=== PATIENT | female | born 1945 | race Caucasian/White ===

== ENCOUNTER → 2016-09-30 | Outpatient (CLI) | payer OTHER, BC ==
--- NOTE | 2016-09-30 13:47 | MAMMOGRAPHY REPORT ---
BILATERAL DIGITAL SCREENING MAMMOGRAM WITH CAD: 09/30/2016 CLINICAL HISTORY: Routine screening. Patient has no complaints. TECHNIQUE: Current study was also evaluated with a Computer Aided Detection (CAD) system. Bilatera l CC and MLO views were obtained. COMPARISON: Comparison is made to exams dated: 09/11/2015 mammogram - [facility], 04/30/2013 mammogram, 05/01/2014 mammogram, 04/27/2012 mammogram, 04/26/2011 mammogram, and 04/23/2010 mammo gram. BREAST COMPOSITION: The tissue of both breasts is heterogeneously dense, which may obscure small ma sses. FINDINGS: No suspicious masses, calcifications, or areas of architectural distortion are noted in e ither breast. There has been no significant interval change compared to prior exams. There are stab le postsurgical changes in the left breast. Bilateral benign-appearing calcifications are stable, p redominantly vascular calcifications. IMPRESSION: ACR BI-RADS CATEGORY 2: BENIGN There is no mammographic evidence of malignancy. A 1 year screening mammogram is recommended. The p atient will receive written notification of the results. Approximately 10% of breast cancers are not detected with mammography. A negative mammographic repor t should not delay biopsy if a clinically suggestive mass is present. Jackelyn Rodriguez M.D. ah/:09/30/2016 12:29:47 Refractive Surgeon: Dasha PATEL(R)(M), [facility] letter sent: Normal 1/2 BI-RADS Code: ACR BI-RADS Category 2: Benign
== END | disposition home or self-care (01) ==
LOC: C.MAMM 10:23
PROVIDERS: ATTEND Internal Medicine
DX: Z12.31 Encounter for screening mammogram for malignant neoplasm of breast (principal); Z78.0 Asymptomatic menopausal state; M85.80 Other specified disorders of bone density and structure, unspecified site

== ENCOUNTER → 2017-02-03 | Outpatient (CLI) | payer OTHER, BC ==
[2017-02-03 08:59] LABS: ALT/SGPT 35 U/L (12-78); BLOOD UREA NITROGEN 15 mg/dl (7-18); BUN/CREATININE RATIO 18.2 (10-20); CARBON DIOXIDE 29 mmol/L (21-32); CHLORIDE 106 mmol/L (98-107); CHOLESTEROL 205 mg/dl (0-200); CREATININE 0.83 mg/dl (0.60-1.20); GLUCOSE 89 mg/dl (70-99); POTASSIUM 4.3 mmol/L (3.5-5.1); SODIUM 141 mmol/L (136-145)
[2017-02-03 09:10] LABS: ALB/GLOB RATIO 1.1 (0.9-2); ALKALINE PHOSPHATASE 83 U/L (45-117); AST/SGOT 32 U/L (15-37); CHOLESTEROL/HDL RATIO 3.3; HDL CHOLESTEROL 63 mg/dl; LDL CHOLESTEROL CALCULATED 112 mg/dl; TRIGLYCERIDES 152 mg/dl (0-150); VERY LOW DENSITY LIPOPROT CALC 30 mg/dl
[2017-02-03 09:17] LABS: CALCIUM 8.9 mg/dl (8.5-10.1)
== END | disposition home or self-care (01) ==
LOC: C.LABFOXMH 08:35
PROVIDERS: ATTEND Internal Medicine
DX: E78.5 Hyperlipidemia, unspecified (principal)

== ENCOUNTER → 2017-10-03 | Outpatient (CLI) | payer OTHER, BC ==
--- NOTE | 2017-10-03 15:09 | MAMMOGRAPHY REPORT ---
BILATERAL DIGITAL SCREENING MAMMOGRAM TOMOSYNTHESIS WITH CAD: 10/03/2017 CLINICAL HISTORY: Routine screening. Patient has no complaints. TECHNIQUE: Breast tomosynthesis in addition to standard 2D mammography was performed. Current study was also evaluated with a Computer Aided Detection (CAD) system. COMPARISON: Comparison is made to exams dated: 09/30/2016 mammogram, 09/11/2015 mammogram - [facility], 04/30/2013 mammogram, 05/01/2014 mammogram, 04/27/2012 mammogram, and 04/26/2011 mammogra m. BREAST COMPOSITION: The tissue of both breasts is heterogeneously dense, which may obscure small mas ses. FINDINGS: There is expected architectural distortion in an area of prior surgery in middle to posteri or slightly inferior left breast on the MLO view. Mild vascular calcification bilaterally and stable benign-appearing loosely grouped punctate microcalcifications in the lateral right breast. No new s uspicious mass, architectural distortion or cluster of microcalcifications is seen. IMPRESSION: ACR BI-RADS CATEGORY 1: NEGATIVE There is no mammographic evidence of malignancy. A 1 year screening mammogram is recommended. The pa tient will receive written notification of the results. Approximately 10% of breast cancers are not detected with mammography. A negative mammographic report should not delay biopsy if a clinically suggestive mass is present. Philly Funez M.D. ay/:10/03/2017 12:23:00 Materials Planner/Production Planner: Dasha MARIEE)(Maya), [facility] letter sent: Normal 1/2 BI-RADS Code: ACR BI-RADS Category 1: Negative
== END | disposition home or self-care (01) ==
LOC: C.MAMM 10:51
PROVIDERS: ATTEND Internal Medicine
DX: Z12.31 Encounter for screening mammogram for malignant neoplasm of breast (principal)

== ENCOUNTER → 2018-01-30 | Outpatient (CLI) | payer OTHER, BC ==
[2018-01-30 08:29] LABS: ALBUMIN 3.6 gm/dl (3.4-5.0); ALT/SGPT 30 U/L (12-78); AST/SGOT 28 U/L (15-37); BLOOD UREA NITROGEN 12 mg/dl (7-18); CALCIUM 8.6 mg/dl (8.5-10.1); CARBON DIOXIDE 29 mmol/L (21-32); CHOLESTEROL 166 mg/dl (0-200); CREATININE 0.85 mg/dl (0.60-1.20); GLUCOSE 89 mg/dl (70-99); POTASSIUM 4.2 mmol/L (3.5-5.1); SODIUM 135 mmol/L (136-145)
[2018-01-30 08:32] LABS: ALKALINE PHOSPHATASE 71 U/L (45-117); LDL CHOLESTEROL CALCULATED 88 mg/dl; TOTAL PROTEIN 7.1 gm/dl (6.4-8.2)
== END | disposition home or self-care (01) ==
LOC: C.LABFOXMH 07:47
PROVIDERS: ATTEND Nurse Practitioner Family
DX: E78.00 Pure hypercholesterolemia, unspecified (principal)

== ENCOUNTER 2021-06-10 07:53 | Observation (INO) ==
--- NOTE | 2021-06-02 12:56 | PAT Medication Instructions ---
Medication Instructions Date of Service June 02, 2021 Home Medications fluoxetine 20 mg capsule 20 mg PO QPM valsartan 160 mg tablet 160 mg PO QPM amlodipine 2.5 mg tablet 2.5 mg PO QAM omega-3 fatty acids 1,000 mg capsule (Fish Oil Concentrate) 1,000 mg PO BID vitamin B complex (B Complex-Vitamin B12) 1 tab PO QAM cholecalciferol (vitamin D3) 50 mcg (2,000 unit) capsule (Vitamin D3) 50 mcg PO QAM latanoprost 0.005 % eye drops 1 drp OPHTHALMIC (EYE) PM STOP taking 2 weeks before surgery omega-3 fatty acids 1,000 mg capsule (Fish Oil Concentrate) 1,000 mg PO BID DO NOT take the morning of surgery vitamin B complex (B Complex-Vitamin B12) 1 tab PO QAM cholecalciferol (vitamin D3) 50 mcg (2,000 unit) capsule (Vitamin D3) 50 mcg PO QAM Take morning of surgery With a small sip of water, OTHERWISE NOTHING TO EAT OR DRINK AFTER MIDNIGHT: amlodipine 2.5 mg tablet 2.5 mg PO QAM Take evening before surgery fluoxetine 20 mg capsule 20 mg PO QPM valsartan 160 mg tablet 160 mg PO QPM latanoprost 0.005 % eye drops 1 drp OPHTHALMIC (EYE) PM Other Notes If you have any questions please call us at [phone] or [phone] or [phone] or [phone]
--- NOTE | 2021-06-03 08:35 | Anesthesiology Consultation ---
Date of Service June 03, 2021 Assessment & Plan (1) Encounter for pre-operative examination: Chart Review Chart Review: Acceptable Risk for Surgery (pending 06/05 ECHO and preop Covid testing results ) and Patient seen in Pre Admission Testing Pt with chronic ECHO- III/ systolic murmur with no recent ECHOs. Did discuss with Dr. Huber- recommended ECHO prior to surgery- patient scheduled for ECHO 06/05/21 (pt aware) Per PAT appt on 06/03/21, patient denies any recent travel or large group activities. No known Covid positive contacts or Covid related symptoms. No known Covid infection in the past 90 days. Pt is vaccinated Covid. Preop Covid testing scheduled 06/08/21 = will await results. Educated on importance of self quarantining, social distancing and wearing mask in public for the patient one week prior to surgery and after Covid testing done History Surgery Operation Date: 06/10/21 11:40 Proposed Procedures p Bilateral Breast Mastectomy with Bilateral [place] Lymph Node Biopsy (NM Scan and Injection @930) - Fan Madrid DO, FACS Height/Weight Height: 5 ft 8 in Weight: 66 kg Allergies Allergy/AdvReac Type Severity Reaction Status Date / Time Sulfa (Sulfonamide Allergy fever, Verified 05/29/21 12:19 Antibiotics) nausea Medications Home Medications Medication Instructions Recorded Confirmed Last Taken fluoxetine 20 mg capsule 20 mg PO QPM 10/14/19 05/29/21 Unknown valsartan 160 mg tablet 160 mg PO QPM 10/14/19 05/29/21 Unknown amlodipine 2.5 mg tablet 2.5 mg PO QAM 10/22/19 05/29/21 Unknown omega-3 fatty acids 1,000 mg 1,000 mg PO BID 10/22/19 05/29/21 Unknown capsule (Fish Oil Concentrate) vitamin B complex (B 1 tab PO QAM 10/22/19 05/29/21 Unknown Complex-Vitamin B12) cholecalciferol (vitamin D3) 50 50 mcg PO QAM 05/29/21 05/29/21 Unknown mcg (2,000 unit) capsule (Vitamin D3) latanoprost 0.005 % eye drops 1 drp OPHTHALMIC (EYE) PM 05/29/21 05/29/21 Unknown Past Medical History Medical History (Updated 06/03/21 @ 16:19 by Modesta Baird PA-C) Bradycardia Per pt, normal for pt's HR to run 40-50 bpm; Pcp aware- monitoring- pt asymptomatic Breast cancer BL - dx 05/12/21 Cardiac murmur Since childhood No screen vent binder; no previous ECHO Depression Glaucoma History of skin cancer removed Hypertension Osteopenia Postoperative nausea Raynauds disease Exercise / Class Metabolic Activity II 4-5 Yardwork/Stairs/Walk up hill (one flight of stairs - no chest pain or SOB ) Past Family History Family History Aunt Breast cancer Colorectal cancer Maternal Uncle Colorectal cancer Maternal Other No family history of adverse response to anesthesia Denies family history of Ovarian cancer Prostate cancer Past Surgical History Surgical History H/O wisdom tooth extraction History of cataract surgery BL History of colonoscopy History of dilation and curettage History of left breast biopsy History of lumpectomy of left breast benign History of right breast biopsy Past Anesthesia History No Hx of Anesthesia Complications (with exception to PONV ) and No Family Hx of Anesthesia Complications History of PONV History of PONV and Hx of Motion Sickness Social History Smoking Status: Never smoker Do You Dip or Chew Tobacco: No Hx Alcohol Use: Yes Alcohol type: wine alcohol intake frequency: a few times a month Hx Substance Use: No substance use type: does not use Review of Systems Patient denies chest pain, shortness of breath, dyspnea on exertion, reflux, cough, wheezing, palpitations. No hx of seizures, stroke, [place], apnea/snoring. No hx of blood clots or blood transfusions Physical Exam Vital Signs VITALS BP 139/56 P 56 TEMP 97.5 SP02 99% RESP 16 Constitutional no acute distress ENMT Mouth: no TMJ clicking Thyromental Distance: > or= 3.5 Finger Breadths (4.0) Mallampati Class: III Permanent implant to right bottom side teeth Neck neck extension not limited Respiratory normal respiratory effort; no respiratory distress Auscultation: lungs clear to auscultation bilaterally; no wheezes Cardiovascular Rate/Rhythm: regular rate and regular rhythm Heart Sounds: + murmur (III/ murmur ) Vessels: + carotid bruit (presumed radiation from murmur ) Musculoskeletal Spine: no pain with cervical ROM Extremities: extremities normal to inspection Psychiatric Orientation: alert Lab Results Anesthesia Preop Results Results Anesthesia Widget: WBC 5.73 K/uL (4.8-10.8) 06/03/21 Hgb 13.2 g/dL (12.0-16.0) 06/03/21 Hct 39.4 % (37-47) 06/03/21 Plt 216 K/uL (130-400) 06/03/21 Na 136 mmol/L (136-145) 06/03/21 K 4.5 mmol/L (3.5-5.1) 06/03/21 Cl 102 mmol/L (98-107) 06/03/21 CO2 28 mmol/L (21-32) 06/03/21 BUN 13 mg/dl (7-18) 06/03/21 Creat 0.82 mg/dl (0.6-1.2) 06/03/21 Glucose Level 73 mg/dl (70-99) 06/03/21 Testing Electrocardiogram Date: 01/15/21 Sinus rhythm 54 bpm. Chest X-Ray Date: 06/03/21 Findings: + NAD Lung volumes are mildly increased. Lungs are clear. There is no pneumothorax or pleural effusion. Cardiac size is at the upper limits of normal. Mediastinal contours are normal. There is no evidence for pulmonary edema.
[~2021-06-10 07:53] MED LIST: LR 15ML/HR IV SCH; ceFAZolin 2000MG 2,000 MG/15 ML SYR IV SCH
[2021-06-10] MEDS ORDERED: ceFAZolin 2,000 MG/15 ML IV PUSH IV ONE (08:49)
[2021-06-10] MEDS ORDERED: fentaNYL citrate 100 MCG/2 ML VIAL ONE ×3 (11:10→13:45)
[2021-06-10] MEDS ORDERED: MIDAZOLAM HCL 1 MG/ML 2ML VIAL ONE (11:10)
--- NOTE | 2021-06-10 11:23 | Nuclear Medicine Report ---
LYMPHOSCINTIGRAPHY CLINICAL HISTORY: Bilateral breast cancer. PROCEDURE: RIGHT BREAST: Using standard sterile technique, 4 intradermal and one deep injection of 0.51 mCi of Lymphoseek was placed in the right breast. The patient tolerated the procedure well. There were no immediate complic ations. The patient was subsequently transported to the surgical suite. Postprocedural imaging demons trates a sentinel node within the right axilla. Indelible marker was used to place a ijeoma on the skin superficial to the node. LEFT BREAST: Using standard sterile technique, 4 intradermal and one deep injection of 0.43 mCi of Lymphoseek was placed in the left breast. The patient tolerated the procedure well. There were no immediate complica tions. The patient was subsequently transported to the surgical suite. Postprocedural imaging demonst rates a sentinel node within the left axilla. Indelible marker was used to place a ijeoma on the skin s uperficial to the node. IMPRESSION: Bilateral breast lymphoscintigraphy as above. ACT 112: Negative or not required by law. Electronically signed by: Ramirez Claros M.D. 06/10/2021 11:22 AM
[2021-06-10] MEDS ORDERED: METHYLENE BLUE 0.5% 10 ML VIAL ONE (11:56)
[2021-06-10] MEDS ORDERED: BUPIVACAINE 0.5 % 5 MG/1 ML MPF 30ML VIAL ONE ×2 (11:56→12:02)
[2021-06-10] MEDS ORDERED: ePHEDrine sulfate 50 MG/ML AMP IV PRN (11:57)
[2021-06-10] MEDS ORDERED: HYDROmorphone INJ 1 MG/ML SYRINGE IV PRN (11:57)
[2021-06-10] MEDS ORDERED: ONDANSETRON INJ 2 MG/ML 2 ML VIAL IV PRN ×2 (11:57→17:02)
[2021-06-10] MEDS ORDERED: fentaNYL citrate 100 MCG/2 ML VIAL IV PRN (11:57)
[2021-06-10] MEDS ORDERED: ATROPINE SULFATE 0.1 MG/ML 10ML SYR IV PRN (11:57)
--- NOTE | 2021-06-10 11:59 | History & Physical Bridge Note ---
Date of Service June 10, 2021 History & Physical Bridge Note I have examined the patient, reviewed the History & Physical and in the interval since the performance of the History & Physical I have noted the following changes of clinical significance: [place] lymph node injections performed, lymphoscintigraphy showed nodes on both sides. No changes noted
[2021-06-10] MEDS ORDERED: SODIUM CHLORIDE 0.9% INJ 10 ML VIAL ONE (12:02)
[2021-06-10] MEDS ORDERED: EPINEPHrine INJ 1 MG/ML AMP ONE (12:02)
[2021-06-10] MEDS ORDERED: GLYCOPYRROLATE 0.2 MG/ML VIAL ONE (12:52)
[2021-06-10] MEDS ORDERED: PHENYLEPHRINE HCL 10 MG/ML VIAL ONE (12:52)
[2021-06-10] MEDS ORDERED: BUPIVACAINE LIPOSOME 1.3% 133 MG/10 ML VIAL INFIL ONE (12:56)
[2021-06-10] MEDS ORDERED: DEXAMETHASONE SOD INJ 4 MG/ML VIAL ONE (13:07)
[2021-06-10] MEDS ORDERED: ePHEDrine sulfate 50 MG/ML SYR ONE (13:07)
[2021-06-10] MEDS ORDERED: ONDANSETRON INJ 2 MG/ML 2 ML VIAL ONE (13:07)
[2021-06-10] MEDS ORDERED: LIDOCAINE 2% 2 ML VIAL/AMP(20MG/ML) INFIL ONE (13:07)
[2021-06-10] MEDS ORDERED: diphenhydrAMINE 50 MG/ML VIAL ONE (13:07)
[2021-06-10] MEDS ORDERED: ROCURONIUM BROMIDE 10 MG/ML 5 ML VIAL IV ONE (13:07)
[2021-06-10] MEDS ORDERED: PROPOFOL IV EMULSION 10 MG/ML 20 ML VIAL IV ONE (13:07)
[2021-06-10] MEDS ORDERED: LARYING-O-JET KIT (LTA) ONE (13:08)
--- NOTE | 2021-06-10 15:02 | Post Operative Brief Note ---
PG Immediate Post Op with CF Date of Surgery June 10, 2021 Pre & Post Diagnosis Operation Date: 06/10/21 11:40 Pre-Op Diagnosis: Invasive Lobular Carcinoma Left Breast, Invasive Ductal Carcinoma Right Breast Post-Op Diagnosis: Invasive Lobular Carcinoma Left Breast, Invasive Ductal Carcinoma Right Breast I identified the patient and participated in the time-out.: Yes Procedure Operation Date: 06/10/21 11:40 Actual Procedures p Bilateral Breast Mastectomy with Bilateral [place] Lymph Node Biopsy(Bila teral) - Fan Madrid DO, FACS Surgeon Fan Madrid DO, FACS [place] Carver Ant Crawford Estimated Blood Loss 20 Findings Consistent with Post-Op Diagnosis single sentinel lymph nodes identified on both sides. Bilateral simple mastect omies performed, drains left bilaterally. Exparel injected. Specimens Specimen Description: A.) Left [place] Lymph Node: sent fresh at 1308 B.) Right Axillary [place] Lymph Node: sent fresh at 1327 C.) Right Breast Mastectomy; short suture superior and long suture lateral: sent fresh at 1405 D.) Left Breast Mastectomy; short suture superior and long suture lateral: sent frest at 1432 Drains Alexi-Soto Drain (10Fr flat x2) Anesthesia Type General Complications none Disposition Accompanied Patient To Recovery: No Disposition: Recovery Room
--- NOTE | 2021-06-10 15:05 | Operative Report ---
PG Post Operative Report Pre & Post Diagnosis Operation Date: 06/10/21 11:40 Pre-Op Diagnosis: Invasive Lobular Carcinoma Left Breast, Invasive Ductal Carcinoma Right Breast Post-Op Diagnosis: Invasive Lobular Carcinoma Left Breast, Invasive Ductal Carcinoma Right Breast I identified the patient and participated in the time-out.: Yes Procedure Operation Date: 06/10/21 11:40 Actual Procedures p Bilateral Breast Mastectomy with Bilateral [place] Lymph Node Biopsy(Bilateral) - Fan Madrid DO, PATRICIA Surgeon Fan Madrid DO, PATRICIA Lan Engineer Ant Crawford Estimated Blood Loss 20 Findings Consistent with Post-Op Diagnosis single sentinel lymph nodes identified on both sides. Bilateral simple mastectomies performed, drains left bilaterally. Exparel injected. Specimens A.) Left [place] Lymph Node: sent fresh at 1308 B.) Right Axillary [place] Lymph Node: sent fresh at 1327 C.) Right Breast Mastectomy; short suture superior and long suture lateral: sent fresh at 1405 D.) Left Breast Mastectomy; short suture superior and long suture lateral: sent frest at 1432 Drains 10mm JR in each mastectomy bed Anesthesia Type General Complications none Disposition Accompanied Patient To Recovery: No Disposition: Recovery Room Indications 75-year-old female with invasive lobular carcinoma of the left breast and invasive ductal carcinoma of the right breast, plan for bilateral mastectomies with bilateral sentinel lymph node biopsies. The risks of the procedure were discussed, all questions were answered, and the patient agreed to proceed with surgery as planned. Description of Procedure Patient had sentinel lymph node injections in both breasts performed prior to t he procedure. Lymphoscintigraphy was performed and showed a single sentinel node in each axilla. Prior to the procedure, the bilateral axilla was examined with a gamma probe and confirmed uptake into the bilateral axilla. The patient was properly identified, consented, and taken to the operating room where she was placed in the supine position. General endotracheal anesthesia was induced. SCDs and a safety belt were placed. Preoperative antibiotics were administered. The patient's bilateral chest was prepped and draped in the standard sterile fashion. Surgical timeout was performed and all parties were in agreement that this was the correct patient and procedure to be performed and we continued as planned. An incision was made in the left axilla in a natural skin crease and deepened down to subcutaneous tissue with electrocautery. The gamma probe was used to localize the sentinel lymph node which read 273 ex vivo. The axilla was reexamined with the gamma probe and was silent. The wound was packed and attention turned to the contralateral axilla. An incision was made in the right axilla in a natural skin crease and deepened down to subcutaneous tissue with electrocautery. The gamma probe was used to localize the sentinel lymph node which read 380 ex vivo. The axilla was reexamined with the gamma probe and was silent. The wound was packed and attention turned to the mastectomy. A transversely oriented elliptical incision was made that encompassed the nipple-arreolar complex on the right breast. Flaps were raised to the clavicle superiorly, the sternum medially, and the rectus sheath inferiorly. The breast was then taken off the chest wall including the pectoralis fascia from superior medial to inferior lateral. We then continued the dissection along the lateral border of the pectoralis muscle. We completed the dissection and the specimen was removed. The specimen was oriented. The wound was irrigated and hemostasis was confirmed. A 10 mm JR drains was placed underneath the mastectomy flap and was secured into place with 2-0 nylon suture. The wound was packed. Attention then turned to the contralateral side. A transversely oriented elliptical incision was made that encompassed the nipple-arreolar complex on the left breast. Flaps were raised to the clavicle superiorly, the sternum medially, and the rectus sheath inferiorly. The breast was then taken off the chest wall including the pectoralis fascia from superior medial to inferior lateral. We then continued the dissection along the lateral border of the pectoralis muscle. We completed the dissection and the specimen was removed. The specimen was oriented. The wound was irrigated and hemostasis was confirmed. A 10 mm JR drains was placed underneath the mastectomy flap and was secured into place with 2-0 nylon suture. The skin of all incisions was closed with interrupted 3-0 Vicryl deep dermal sutures, followed by 4-0 Monocryl running subcuticular suture. Dermabond was placed over the wounds. Drain sponges were placed. Kerlix fluffs and an Aram wrap were placed. The patient was extubated in the operating room and taken to the PACU where she recovered without apparent incident. All sponge, instrument and needle counts were correct at the conclusion of the procedure. The patient tolerated the procedure well. The physician's starch treating assistant was present and scrubbed for the entire to the case. He was critical in positioning the patient, prepping and draping, retraction and exposure, excision of the specimens, closure the incisions, and placement of dr essings. I attest to the content of the Intraoperative Record and any orders documented therein. Any exceptions are noted below.
--- NOTE | 2021-06-10 16:55 | Anesthesiology Progress Note ---
Date of Service June 10, 2021 Anesthesia Post Procedure Vital Signs Vital Signs: Temp Pulse Pulse Resp BP Pulse Ox 06/10/21 16:35 75 18 136/61 93 06/10/21 16:25 37.2 C 69 18 131/69 93 06/10/21 16:15 69 18 140/68 93 06/10/21 16:05 66 18 131/69 94 06/10/21 15:55 64 18 139/66 94 06/10/21 15:45 65 17 139/71 97 06/10/21 15:35 64 16 142/67 H 97 06/10/21 15:25 67 14 135/62 97 06/10/21 15:17 36.3 C L 70 16 144/63 H 99 06/10/21 08:35 36.6 C 49 L 16 152/65 H 100 Transfer of Care Handoff Completed per policy Notes Mental Status: alert / awake / arousable and participated in evaluation Patient Amnestic to Procedure: Yes Nausea / Vomiting: adequately controlled Pain: adequately controlled Airway Patency, RR, SpO2: stable & adequate BP & HR: stable & adequate Hydration State: stable & adequate Anesthetic Complications: no major complications apparent and Pt Satisfied with anesthetic care
[2021-06-10] MEDS ORDERED: MoRPHine SULFATE 2 MG/ML CARP IV PRN (17:02)
[2021-06-10] MEDS ORDERED: oxyCODONE/ACETAMINOPHEN 5mg/325mg TAB PO PRN (17:02)
[2021-06-10] MEDS ORDERED: MoRPHine SULFATE 4 MG/ML 1 ML CARP\\VIAL IV PRN (17:02)
[2021-06-10] MEDS: LACTATED RINGER'S 1,000 ML IV SCH (17:20)
[2021-06-10] MEDS ORDERED: FLUoxetine HCL 20 MG CAP PO SCH (21:00)
[2021-06-10] MEDS ORDERED: VALSARTAN 80 MG TAB PO SCH (21:00)
[2021-06-10] MEDS ORDERED: LATANOPROST 0.005% OP SOLN 2.5 ML BTL OP SCH (21:00)
[2021-06-10] MEDS: oxyCODONE/ACETAMINOPHEN 5mg/325mg TAB PO PRN (22:16)
[2021-06-11] MEDS: LACTATED RINGER'S 1,000 ML IV SCH (04:02)
[2021-06-11] MEDS: oxyCODONE/ACETAMINOPHEN 5mg/325mg TAB PO PRN (06:22)
[2021-06-11 08:13] LABS: Basophils # (auto) 0.01 K/uL (0-0.2); Basophils % (auto) 0.1 %; Eosinophils # (auto) 0.01 K/uL (0-0.5); Eosinophils % (auto) 0.1 %; Hematocrit (blood only) 34.1 % (37-47); Hemoglobin 11.5 g/dL (12.0-16.0); Immature Granulocytes # (auto) 0.01 K/uL (0.00-0.02); Immature Granulocytes % (auto) 0.1 %; Lymphocytes # (auto) 1.42 K/uL (1.2-3.4); Lymphocytes % (auto) 13.6 %; Mean Corpuscular Hemoglobin 31.2 pg (25-34); Mean Corpuscular Hgb Conc 33.7 g/dL (32-36); Mean Corpuscular Volume 92.4 fL (80-100); Mean Platelet Volume 10.1 fL (7.4-10.4); Monocytes # (auto) 1.11 K/uL (0.11-0.59); Monocytes % (auto) 10.6 %; Neutrophils # (auto) 7.89 K/uL (1.4-6.5); Neutrophils % (auto) 75.5 %; Platelet Count 189 K/uL (130-400); RDW Coefficient of Variation 13.5 % (11.5-14.5); RDW Standard Deviation 45.1 fL (36.4-46.3); Red Blood Count 3.69 M/uL (4.2-5.4); White Blood Count 10.45 K/uL (4.8-10.8)
[2021-06-11 08:45] LABS: BUN Creatinine Ratio 15.7 (10-20); Calcium 8.5 mg/dl (8.5-10.1); Creatinine Clr Calc Pharmacy 62.4 ml/min; Est GFR (African American) 83.5 ml/min; Est GFR (Non-African American) 72.1 ml/min; Potassium 4.1 mmol/L (3.5-5.1)
[2021-06-11] MEDS ORDERED: amLODIPine BESYLATE 5 MG TAB PO SCH (09:00)
--- NOTE | 2021-06-11 12:38 | Surgery Progress Note ---
Date of Service June 11, 2021 Assessment & Plan (1) S/P mastectomy, bilateral: Plan: s/p bilateral mastectomies and b/l axillary sentinel lymph node biopsies, doing well d/c to home wound care instructions, activity restrictions and return precautions reviewed rx for percocet prn pain f/u in office as scheduled, call early next week with drain output details of surgery reviewed. Admission and Anticipated Discharge Date Admission Date: June 10, 2021 Subjective 75 y/o female POD#1 s/p bilateral mastectomies and bilateral sentinel lymph node biopsies. Doing well, pain well controlled, tolerating diet and ambulating. Physical Exam Constitutional: WD/WN, vitals as above Chest (Breasts): Additional Comments: bilateral axillary incisions and chest incisions healing well, dermabond in place, no e/o infection. Flaps viable. JR's with minimal serosanguineous output. Results & Data ([facility]) Vital Signs (Past 12 Hours) Vital Signs Temp Pulse Resp BP Pulse Ox 06/11/21 11:31 37.1 C 57 L 17 118/69 95 06/11/21 07:23 36.7 C 59 L 16 108/60 96 06/11/21 02:42 37.1 C 59 L 16 109/53 L 94 PG Care Time/CCT Total # of Minutes Spent Total Time Spent with Patient: Total time spent is greater than 50% in coordination of care (as documented) at patient's floor/unit and/or counseling patient: Coding Level of Care Code None Diagnoses S/P mastectomy, bilateral Z90.13
--- NOTE | 2021-06-12 12:43 | Discharge Summary ---
Date of Service June 12, 2021 Principal Diagnosis Invasive Lobular Carcinoma Left Breast, Invasive Ductal Carcinoma Right Breast Discharge Exam Constitutional WD/WN, vitals as above Chest (Breasts) Additional Comments: Incisions dry, no hematoma, СЕРГЕЙ drains in place Discharge Data Allergies Allergy/AdvReac Type Severity Reaction Status Date / Time Sulfa (Sulfonamide AdvReac Severe fever, Verified 06/10/21 08:32 Antibiotics) nausea Procedures Performed Operation Date: 06/10/21 11:40 Actual Procedures p Bilateral Breast Mastectomy with Bilateral [place] Lymph Node Biopsy(Bilateral) - Fan Madrid DO, FACS Ordered Studies 06/10/21 05:00 US - OR guided needle placemen Routine Hospital Course (1) S/P mastectomy, bilateral: 75 y/o female was taken to the operating room for bilateral mastectomy and sentinel lymph node biopsy. She was transferred to the surgical floor for overnight observation. By the next morning she was able to tolerate oral analgesics. Se was stable for discharge home with СЕРГЕЙ drains to be removed in the office. Total Time Total Time Spent Total Time Spent (In Minutes): 15 Discharge Plan Discharge Items Patient Disposition: Home - Self-Care Reason For Visit: Invasive Lobular Carcinoma Left Breast Discharge Diagnosis: status post bilateral mastectomies and sentinel lymph node biopsies for bilateral breast cancers Condition on Discharge: Good Activity: Per Instructions section Lifting Comment: no heavy lifting (>20lbs) or strenuous activity for 2 weeks Bathing Comment: may shower starting today, do not soak or scrub wound for 2 weeks. Exercise/Sports: Gradually increase as tolerated Driving/Machine Use: Resume 3 days after discharge Non-emergency contact: Surgeon Call non-emergency contact if: you have any medication questions, your pain is not controlled, your temperature is above 101, your wound has increased redness and your wound has increased drainage Follow-up/Referrals: Fan Madrid DO, FACS [Physician] - 07/06/21 9:15 am (call general surgery clinic with drain outputs on tuesday) Deanna Romeo [Primary Care Provider] - Diet: Regular Addtl Attending Provider Instructions: may take ibuprofen as needed for pain, follow tunnel elastic operator lockstitch's directions. Keep сергей drain sites covered when showering measure сергей drain output for each drain daily Pending Studies at Discharge: Yes (pathology) Stand-Alone Forms: My [facility], Opioid Pain Management, Smoking Cessation Medications and DC Order Prescriptions: New oxycodone-acetaminophen [Percocet] 5-325 mg Tablet 1 - 2 tab PO Q6H PRN (Reason: Pain) Qty: 20 RF: 0 Continued valsartan 160 mg tablet 160 mg PO QPM RF: 0 fluoxetine [Prozac] 20 mg capsule 20 mg PO QPM RF: 0 amlodipine 2.5 mg tablet 2.5 mg PO QAM RF: 0 omega-3 fatty acids [Fish Oil Concentrate] 1,000 mg capsule 1,000 mg PO BID RF: 0 vitamin B complex [B Complex-Vitamin B12] Tablet 1 tab PO QAM RF: 0 latanoprost 0.005 % Drops 1 drp OPHTHALMIC (EYE) PM RF: 0 cholecalciferol (vitamin D3) [Vitamin D3] 50 mcg (2,000 unit) Capsule 50 mcg PO QAM RF: 0 Discharge Orders: Discharge Order (Routine); Ordered 06/11/21 Ordered By: Fan Bone/Other Patient Handouts: DVT Post Op Prevention, Discharge Instructions Caring for ... Admission Data Admit Date/Time: 06/10/21 15:17 Attending Provider: Fan Madrid Admit Provider: Fan Madrid Primary Care Provider: Deanna Romeo Other Interventions: Discharge Summary Assessment (RN) Last Done: 06/11/21 15:06 Coding Level of Care Code D/C DAY MANAGEMENT <30 MINS Diagnoses S/P mastectomy, bilateral Z90.13
== END 2021-06-11 16:21 | disposition home or self-care (01) ==
LOC: 3W 07:53 → ASU 07:53